=== PATIENT | male | born 1950 | race Caucasian/White ===

== ENCOUNTER → 2017-09-08 | Outpatient (CLI) | payer MEDICARE | END | disposition home or self-care (01) | LOC: PCVCIMAG 13:37 | DX: I48.91 Unspecified atrial fibrillation (principal); I10 Essential (primary) hypertension; Q21.1 Atrial septal defect; Z79.82 Long term (current) use of aspirin | CPT/HCPCS: 93005; 93325; 93351; G0463 ==